=== PATIENT | male | born 1995 | race African-American/Black ===

== ENCOUNTER 2016-12-28 17:44 | Emergency (ER) | payer SELFPAY ==
[~2016-12-28] VITALS: Ht 180.3 cm; Wt 72.6 kg
[2016-12-28 17:50] VITALS: BP 132/89
--- NOTE | 2016-12-28 17:57 | PHYS DOC ---
Adult General Chief Complaint Chief Complaint: SORE THROAT HPI HPI Patient is a 21 year old male presents to the emergency department with complaint of sore throat. Patient states he was seen at a workman's comp related facility today for his pinkeye. He states that he told them he had a sore throat and he did a strep test on him which was positive. They've been advised him to come to the emergency department for treatment of his strep throat. Review of Systems Review of Systems Constitutional: Denies fever or chills [] Eyes: Redness with discharge HENT: Denies nasal congestion, complain of sore throat Respiratory: Denies cough or shortness of breath [] Cardiovascular: No additional information not addressed in HPI [] GI: Denies abdominal pain, nausea, vomiting, bloody stools or diarrhea [] : Denies dysuria or hematuria [] Musculoskeletal: Denies back pain or joint pain [] Integument: Denies rash or skin lesions [] Neurologic: Denies headache, focal weakness or sensory changes [] Endocrine: Denies polyuria or polydipsia [] Physical Exam Physical Exam Constitutional: Well developed, well nourished, no acute distress, non-toxic appearance. [] HENT: Normocephalic, atraumatic, bilateral external ears normal, posterior pharynx erythematous Eyes: PERRLA, EOMI, conjunctiva beefy red with purulent discharge bilateral medial canthus. Neck: Normal range of motion, no tenderness, supple, no lymphadenopathy Cardiovascular:Heart rate regular rhythm, no murmur [] Lungs & Thorax: Bilateral breath sounds clear to auscultation [] Abdomen: Bowel sounds normal, soft, no tenderness, no masses, no pulsatile masses. [] Skin: Warm, dry, no erythema, no rash. [] Neurologic: Alert and oriented X 3, normal motor function, normal sensory function, no focal deficits noted. [] Psychologic: Affect normal, judgement normal, mood normal. [] EKG EKG [] Radiology/Procedures Radiology/Procedures [] Course & Med Decision Making Course & Med Decision Making Pertinent Labs and Imaging studies reviewed. (See chart for details) [] Dragon Disclaimer Dragon Disclaimer This electronic medical record was generated, in whole or in part, using a voice recognition dictation system. Departure Departure Impression: Primary Impression: Strep pharyngitis Disposition: 01 HOME, SELF-CARE Condition: STABLE [facility] Patient Instructions: Viral and Bacterial Pharyngitis Additional Instructions: You received an injection of Bicillin in the emergency department. Bicillin as an antibiotic used to treat a strep infection. He may use Tylenol and/or Motrin [id number] as labeled and is indicated for symptom management. If you have further questions or concerns please return to the emergency department or your primary care provider. ROGERIO JHAVERI [employer] LIGHTER REPAIRER Dec 28, 2016 17:57
[2016-12-28] MEDS ORDERED: PENICILLIN G BENZATHINE LA 1,200,000 UNIT/2 ML DISP.SYRIN. IM ONE (18:15)
== END 2016-12-28 18:20 | disposition home or self-care (01) ==
LOC: ER 17:44
DX: J02.0 Streptococcal pharyngitis (principal)
CPT/HCPCS: 96372; 99283; J0561

== ENCOUNTER 2017-05-11 12:16 | Emergency (ER) | payer SELFPAY ==
[~2017-05-11] VITALS: Ht 180.3 cm; Wt 68.0 kg
[2017-05-11 12:46] VITALS: BP 115/77
[2017-05-11] MEDS ORDERED: AZITHROMYCIN 250 MG TABLET. PO ONE (13:00)
[2017-05-11] MEDS ORDERED: metroNIDAZOLE 500 MG TABLET PO ONE (13:00)
[2017-05-11] MEDS ORDERED: cefTRIAXone IM 250 MG VIAL IM ONE (13:00)
--- NOTE | 2017-05-11 13:18 | PHYS DOC ---
Past Medical History Past Medical History: No Pertinent History Past Surgical History: No Surgical History Alcohol Use: Occasionally Drug Use: None Adult General Chief Complaint Chief Complaint: SEXUALLY TRANSMITTED DISEASE HPI HPI Patient is a 22 year old medical presents with STD concern. Patient states the significant other called him and informed him she was diagnosed with chlamydia. Review of Systems Review of Systems Constitutional: Denies fever or chills [] GI: Denies abdominal pain, nausea, vomiting, bloody stools or diarrhea [] : STD concern. Denies dysuria or hematuria [] Musculoskeletal: Denies back pain or joint pain [] Integument: Denies rash or skin lesions [] Neurologic: Denies headache, focal weakness or sensory changes [] Endocrine: Denies polyuria or polydipsia [] All other systems were reviewed and found to be within normal limits, except as documented in this note. Current Medications Current Medications Current Medications Medications (Trade) Dose Ordered Sig/Prem Start Time Stop Time Status Last Admin Dose Admin Azithromycin (Zithromax) 1,000 mg 1X ONCE 05/11/17 13:00 05/11/17 13:01 DC 05/11/17 13:08 1,000 MG Ceftriaxone Sodium (Rocephin Im) 250 mg 1X ONCE 05/11/17 13:00 05/11/17 13:01 DC 05/11/17 13:09 250 MG Metronidazole (Flagyl) 2,000 mg 1X ONCE 05/11/17 13:00 05/11/17 13:01 DC 05/11/17 13:08 2,000 MG Allergies Allergies Allergies Coded Allergies Type Severity Reaction Last Updated Verified No Known Drug Allergies 12/28/16 No Physical Exam Physical Exam Constitutional: Well developed, well nourished, no acute distress, non-toxic appearance. [] Abdomen: Bowel sounds normal, soft, no tenderness, no masses, no pulsatile masses. [] Skin: Warm, dry, no erythema, no rash. [] Back: No tenderness, no CVA tenderness. [] Extremities: No tenderness, no cyanosis, no clubbing, ROM intact, no edema. [] Neurologic: Alert and oriented X 3, normal motor function, normal sensory function, no focal deficits noted. [] Psychologic: Affect normal, judgement normal, mood normal. [] Current Patient Data Vital Signs Vital Signs Date Time Temp Pulse Resp B/P (MAP) Pulse Ox O2 Delivery O2 Flow Rate FiO2 05/11/17 12:46 98.4 58 16 97 Room Air 98.4 EKG EKG [] Radiology/Procedures Radiology/Procedures [] Course & Med Decision Making Course & Med Decision Making Pertinent Labs and Imaging studies reviewed. (See chart for details) Patient is in the ED with STD concern. He was treated. Educated on STDs need to use protection. Dragon Disclaimer Dragon Disclaimer This electronic medical record was generated, in whole or in part, using a voice recognition dictation system. Departure Departure Impression: Primary Impression: Concern about STD in male without diagnosis Disposition: HOME, SELF-CARE Condition: STABLE Referrals: NO PCP (PCP) follow up with the health department for STD concerns. Patient Instructions: Sexually Transmitted Disease Additional Instructions: You were treated for sexually transmitted diseases in the ED including gonorrhea chlamydia and Trichomonas. Use protection at all times. Follow up with the health department for further STD concerns concern. Contact all your sex partners, let them know you were treated for STDs and ask them to seek treatment too. Do not have sex for 7 days. We will call you in 3-7 days only if you results are positive, we do not call with negative results. WESTON ELY [employer] TECHNICAL ADVISOR May 11, 2017 13:18
[2017-05-11 13:28] LABS: BILIRUBIN,URINE NEGATIVE (NEG); GLUCOSE,URINE NEGATIVE (NEG); NITRITE,URINE NEGATIVE (NEG); PH,URINE 7.5; PROTEIN,URINE NEGATIVE (NEG-TRACE)
[2017-05-11 13:43] LABS: BACTERIA,URINE 0 /HPF (0-FEW); RBC,URINE 0 /HPF (0-2); WBC,URINE 0 /HPF (0-4)
== END 2017-05-11 13:20 | disposition home or self-care (01) ==
LOC: ER 12:16
DX: Z11.3 Encounter for screening for infections with a predominantly sexual mode of transmission (principal)
CPT/HCPCS: 81001; 87491; 87591; 96372; 99284; J0696; Q0144